=== PATIENT | female | born 1970 | race Caucasian/White ===

== ENCOUNTER → 2017-06-07 | Outpatient (CLI) | payer BC ==
[2016-02-17 13:30] VITALS: BMI 30.1
[~2017-06-07] MED LIST: ASPI-1267 PO; ASPI-757 PO; BUPR-149 PO; CALC-797 PO; CELE-1 PO; CIT20 PO; CYCL10TA29 PO; DIA5 PO; FLUO40CA76 PO; HYDR-318 PO; LOR5 PO; MELO-205 PO; OMEG-26 PO; PER PO; PRE10 PO; RED600TA PO; ZOLP-350 PO
== END ==
LOC: LAB 12:04
PROVIDERS: ATTEND Nurse Practitioner Family
DX: E83.119 Hemochromatosis, unspecified (principal)
CPT/HCPCS: 36415; 82040; 82247; 82310; 82374; 82435; 82565; 82728; 82947; 84075; 84132; 84155; 84295; 84450; 84460; 84520; 85014; 85018